=== PATIENT | male | born 1975 | race Two or more races ===

== ENCOUNTER 2017-03-24 20:39 | Emergency (ER) | payer MEDICAID ==
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
--- NOTE | 2017-03-25 11:08 | Diagnostic Imaging Report ---
Right shoulder (3 views) HISTORY: Pain No acute bony abnormalities. No fractures. No dislocation. IMPRESSION: No acute abnormalities
== END 2017-03-24 21:35 | disposition home or self-care (01) ==
LOC: ER 20:39
DX: M25.511 Pain in right shoulder (principal)
CPT/HCPCS: 73030-TC-RT; Z7502

== ENCOUNTER 2017-06-04 11:27 | Emergency (ER) | payer MEDICAID ==
--- NOTE | 2017-06-04 11:56 | ED Physician Chart ---
ED Chief Complaint/HPI - Patient Information Date Seen:: 06/04/17 Time Seen:: 11:40 Chief Complaint:: Right Red Eye History of Present Illness:: onset x one day of right red eye, right ocular discharge; no decreased vision, eye pain, visual changes, or FB sensation; no H/As, E/As, S/T, neck pain, C/P, SOB, Abd. Pain, A/N/V/D/C, fever, chills, or urinary s/s; pt's last tetanus shot : < 5 years; UTD Allergies:: Allergies Allergy/AdvReac Type Severity Reaction Status Date / Time No Known Allergies Allergy Verified 03/24/17 20:54 Vitals:: Vital Signs - 8 hr 06/04/17 11:39 Temp 98.3 F HR 75 RR 17 BP 115/68 O2 Sat % 95 Historian:: Patient Review:: Nurse's Note Reviewed ED Review of Systems - Review of Systems General/Constitutional: No fever, No chills, No weight loss, No weakness, No diaphoresis, No edema, No loss of appetite Skin: No skin lesions, No rash, No bruising Head: No headache, No light-headedness Eyes: No loss of vision, No pain, No diplopia, Other (red eye) ENT: No earache, No nasal drainage, No sore throat, No tinnitus Neck: No neck pain, No swelling, No thyromegaly, No stiffness, No mass noted Cardio Vascular: No chest pain, No palpitations, No PND, No orthopnea, No edema Pulmonary: No SOB, No cough, No sputum, No wheezing GI: No nausea, No vomiting, No diarrhea, No pain, No melena, No hematochezia, No constipation, No hematemesis G/U: No dysuria, No frequency, No hematuria Musculoskeletal: No bone or joint pain, No back pain, No muscle pain Endocrine: No polyuria, No polydipsia Psychiatric: No prior psych history, No depression, No anxiety, No suicidal ideation Hematopoietic: No bruising, No lymphadenopathy Allergic/Immuno: No urticaria, No angioedema Neurological: No syncope, No focal symptoms, No weakness, No paresthesia, No headache, No seizure, No dizziness, No confusion, No vertigo ED Past Medical History - Past Medical History Obtainable: Yes Past Medical History: No significant medical hx Family History: HTN Social History: Non Smoker, No Alcohol, No Drug Use, Surgical History: None Psychiatricy History: None Medication: Reviewed Family Medical History - Family Member Mother History Unknown: Yes Living Status: Still Living Hx Family Hypertension: Yes Hx Family Diabetes: Yes ED Physical Exam - Physical Examination General/Constitutional: Awake, Well-developed, well-nourished, Alert, No distress, GCS 15, Non-toxic appearing, Ambulatory Head: Atraumatic Eyes: Lids, conjuctiva normal, PERRL, EOMI Other Eyes comments:: Va: 20/20 OU; + Right Conjunctival Injection; no FBs; Corneas: clear; no FBs; no abrasions; PERRLA; Fundi: benign; EOMs: WNL Skin: Nl inspection, No rash, No skin lesions, No ecchymosis, Well hydrated, No lymphadenopathy ENMT: External ears, nose nl, Nasal exam nl, Lips, teeth, gums nl Neck: Nontender, Full ROM w/o pain, No JVD, No nuchal rigidity, No bruit, No mass, No stridor Respiratory: Nl effort/Exclusion, Clear to Auscultation, No Wheeze/Rhonchi/Rales Cardio Vascular: RRR, No murmur, gallop, rubs, NL S1 S2 GI: No tenderness/rebounding/guarding, No organomegaly, No hernia, Normal BS's, Nondistended, No mass/bruits, No McBurney tenderness : No CVA tenderness Extremities: No tenderness or effusion, Full ROM, normal strength in all extremities, No edema, Normal digits & nails Neuro/Psych: Alert/oriented, DTR's symmetric, Normal sensory exam, Normal motor strength, Judgement/insight normal, Mood normal, Normal gait, No focal deficits ED Septic Shock - . Is Septic Shock (SBP<90, OR Lactate>4 mmol\L) present?: No - <6hrs of presentation: Vital Signs: Vital Signs - 8 hr 06/04/17 11:39 Temp 98.3 F HR 75 RR 17 BP 115/68 O2 Sat % 95 ED Reassessment (Disposition) - Reassessment Reassessment:: pt is comfortable upon discharge Reassessment Condition:: Improved - Diagnosis Diagnosis:: Dx: Right Red Eye; Right Conjunctivitis - Aftercare/Follow up Instructions Aftercare/Follow-Up Instructions:: Counseled pt regarding lab results/diagnosis & need follow up, Refer to Discharge Instructions, Counseled pt & family regarding lab results/diagnosis & need follow up Medication Prescribed:: Rx: tobramycin Ophthalmic Eye Drops: one drop to right eye qid x 7 days - Patient Disposition Discharge/Transfer:: Home Condition at Disposition:: Stable, Improved (RTER prn if existing s/s reoccur and/or get worse and/or any other new s/s occur; ACIs given for all Dx; Refer to [employer]; F/U with PMD in one day or prn; RTER prn if concerned) ED Discharge Plan - Patient Disposition Prescriptions: Tobramycin 0.3% Ophth Oint [Tobrex 0.3% Ophth Oint] 1 appl RIGHT EYE QID 7 Days appl Instructions: Conjunctivitis (Viral and Bacterial)
== END 2017-06-04 12:00 ==
LOC: ER 11:27
DX: H10.31 Unspecified acute conjunctivitis, right eye (principal)
CPT/HCPCS: Z7502